=== PATIENT | male | born 1980 | race African-American/Black ===

== ENCOUNTER 2017-05-20 03:55 | Emergency (ER) | payer OTHER ==
[2017-05-20 04:31] VITALS: BP 153/99; PULSE 75; TEMP 97.5; BMI 31.1
--- NOTE | 2017-05-20 04:39 | PDOC ---
History of Present Illness - General History Source: Patient - History of Present Illness Initial Comments: 05/20/17 04:39 The patient is a 37 year old male, with no significant past medical history, who presents to the emergency department with a weeks of cold-like symptoms. The patient reports being around his and her coworker who have been sick with similar symptoms recently. He states his wifes coworker was hospitalized which raised his concern and prompted him to come to the ED. He denies chest pain, shortness of breath, headache and dizziness. He denies fever, chills, nausea, vomit, diarrhea and constipation. He denies dysuria, frequency, urgency and hematuria. Allergies: NKDA <Denice Prado - Last Filed: 05/20/17 04:39> - General History Source: Patient <Jay JayArpan - Last Filed: 05/20/17 05:17> - General Chief Complaint: Shortness of Breath Stated Complaint: S.O.B. Time Seen by Provider: 05/20/17 04:33 Past History <Denice Prado - Last Filed: 05/20/17 04:39> - Past Medical History COPD: No HTN: Yes - Suicide/Smoking/Psychosocial Hx Smoking Status: Yes Smoking History: Never smoked Have you smoked in the past 12 months: No Number of Cigarettes Smoked Daily: 20 Information on smoking cessation initiated: No Hx Alcohol Use: No Drug/Substance Use Hx: No Substance Use Type: None <SergosoledadArpan - Last Filed: 05/20/17 05:17> - Past Medical History Allergies/Adverse Reactions: Allergies Allergy/AdvReac Type Severity Reaction Status Date / Time No Known Allergies Allergy Verified 05/20/17 04:27 Home Medications: Ambulatory Orders No Home Medications 0 dose .ROUTE UTDICT 05/18/12 Ibuprofen [Motrin -] 800 mg PO Q6H #30 tablet 11/11/15 Nebivolol [Bystolic -] 5 mg PO DAILY 11/11/15 Review of Systems - Review of Systems Able to Perform ROS?: Yes Comments:: 05/20/17 04:39 CONSTITUTIONAL: Absent: fever, chills, diaphoresis, generalized weakness, malaise, loss of appetite HEENT: (+) nasal congestion, rhinorrhea, Absent: throat pain, throat swelling, difficulty swallowing, mouth swelling, ear pain, eye pain, visual Changes CARDIOVASCULAR: Absent: chest pain, syncope, palpitations, irregular heart rate, lightheadedness , peripheral edema RESPIRATORY: Absent: cough, shortness of breath, dyspnea with exertion, orthopnea, wheezing, stridor, hemoptysis GASTROINTESTINAL: Absent: abdominal pain, abdominal distension, nausea, vomiting, diarrhea, constipation, melena, hematochezia GENITOURINARY: Absent: dysuria, frequency, urgency, hesitancy, hematuria, flank pain, genital pain MUSCULOSKELETAL: Absent: myalgia, arthralgia, joint swelling SKIN: Absent: rash, itching, pallor HEMATOLOGIC/IMMUNOLOGIC: Absent: easy bleeding, easy bruising, lymphadenopathy, frequent infections ENDOCRINE: Absent: unexplained weight gain, unexplained weight loss, heat intolerance, cold intolerance NEUROLOGIC: Absent: headache, focal weakness or paresthesias, dizziness, unsteady gait, seizure, mental status changes, bladder or bowel incontinence PSYCHIATRIC: Absent: anxiety, depression, suicidal or homicidal ideation, hallucinations. <Denice Prado - Last Filed: 05/20/17 04:39> *Physical Exam - Vital Signs Last Vital Signs Temp Pulse Resp BP Pulse Ox 97.5 F L 75 18 153/99 100 05/20/17 04:28 05/20/17 04:28 05/20/17 04:28 05/20/17 04:28 05/20/17 04:28 - Physical Exam Comments: 05/20/17 04:41 GENERAL: Well developed, well nourished. Awake and alert. No acute distress. HEENT: Normocephalic, atraumatic. PERRLA, EOMI. No conjunctival pallor. Sclera are non- icteric. Moist mucous membranes. Oropharynx is clear. NECK: Supple. Full ROM. No JVD. Carotid pulses 2+ and symmetric, without bruits. No thyromegaly. No lymphadenopathy. CARDIOVASCULAR: Regular rate and rhythm. No murmurs, rubs, or gallops. Distal pulses are 2+ and symmetric. PULMONARY: No evidence of respiratory distress. Lungs clear to auscultation bilaterally. No wheezing, rales or rhonchi. ABDOMINAL: Soft. Non-tender. Non-distended. No rebound or guarding. No organomegaly. Normoactive bowel sounds. MUSCULOSKELETAL Normal range of motion at all joints. No bony deformities or tenderness. No CVA tenderness. EXTREMITIES: No cyanosis. No clubbing. No edema. No calf tenderness. SKIN: Warm and dry. Normal capillary refill. No rashes. No jaundice. NEUROLOGICAL: Alert, awake, appropriate. Cranial nerves 2-12 intact. Normoreflexic in the upper and lower extremities. Normal speech. Toes are down-going bilaterally. Gait is normal without ataxia. PSYCHIATRIC: Cooperative. Good eye contact. Appropriate mood and affect. <Denice Prado - Last Filed: 05/20/17 04:39> - Vital Signs Last Vital Signs Temp Pulse Resp BP Pulse Ox 97.5 F L 75 18 153/99 100 05/20/17 04:28 05/20/17 04:28 05/20/17 04:28 05/20/17 04:28 05/20/17 04:28 <Arpan Goyal - Last Filed: 05/20/17 05:17> Medical Decision Making - Medical Decision Making 05/20/17 05:16 Dr. Goyal: The scribe's documentation has been prepared under my direction and personally reviewed by me in its entirery. I confirm that the note above accurately reflects all work, treatment, procedures, and medical decision making performed by me. <Arpan Goyal - Last Filed: 05/20/17 05:17> *DC/Admit/Observation/Transfer - Attestations Scribe Attestion: 05/20/17 04:42 Documentation prepared by Denice Prado, acting as forensic medical examiner for Arpan Goyal DO <Denice Prado - Last Filed: 05/20/17 04:39> - Discharge Dispostion Admit: No <Arpan Goyal - Last Filed: 05/20/17 05:17> Diagnosis at time of Disposition: Cough, Post-nasal drip - Discharge Dispostion Disposition: HOME Condition at time of disposition: Stable - Referrals Referrals: Billy Forde MD [Primary Care Provider] - - Patient Instructions Printed Discharge Instructions: DI for Cough -- Adult Additional Instructions: Purchase and take Claritin over the counter medication once daily and possibly Benadryl for night time to dry up your secretion. Follow up with your doctor if symptoms don't improve. Your chest xray and the influenza taken here in the department were negative - Post Discharge Activity
--- NOTE | 2017-05-20 13:17 | EKG ---
Test Reason : Blood Pressure : / mmHG Vent. Rate : 053 BPM Atrial Rate : 053 BPM P-R Int : 168 ms QRS Dur : 092 ms QT Int : 452 ms P-R-T Axes : -02 060 035 degrees QTc Int : 424 ms SINUS BRADYCARDIA OTHERWISE NORMAL ECG NO PREVIOUS ECGS AVAILABLE Confirmed by CAILIN PAN, CARL ([id number]) on 05/20/2017 1:17:19 PM Referred By: Confirmed By:CARL SIMEON MD
== END 2017-05-20 05:31 | disposition home or self-care (01) ==
LOC: JER 03:55
DX: R09.82 Postnasal drip (principal); R05 Cough
CPT/HCPCS: 71046-TC; 87804; 93005; 93010; 99282-25

== ENCOUNTER 2017-12-30 05:05 | Day surgery (SDC) | payer OTHER ==
[2017-12-23 16:20] VITALS: BMI 27.4
--- NOTE | 2017-12-30 09:20 | HP ---
Satellite [facility] - Chief Complaint Chief Complaint: right knee pain - Past Medical History Allergies/Adverse Reactions: Allergies Allergy/AdvReac Type Severity Reaction Status Date / Time No Known Allergies Allergy Verified 05/20/17 04:27 - Current Medications Current Medications: Home Medications Medication Instructions Recorded Oxycodone HCl/Acetaminophen 1 - 2 tab PO Q6H #30 tab MDD 6 12/30/17 [Percocet 5-325 mg Tablet] Satellite Physical Exam - Physical Examination Vital Signs: Vital Signs Period Temp Pulse Resp BP Sys/Elkins Pulse Ox Last 24 Hr 100 General Appearance: Well Nourished, Well Developed, Alert & Oriented x3 ENT: Clear Lung: Normal air movement Heart: Regular rate & rhythm Extremities: Other (right knee- +swelling, + ttp, decr rom, + amira, + ant draw, + carole, nvi MRI + acl rupture, LMT) Neurological: Intact, Alert, Oriented Satellite Impression/Plan - Impression/Plan Impression: right knee internal derangement Operative Procedure: right knee arthroscopy with ACL reconstruction using autograft Date to be Performed: 12/30/17
[2017-12-30] MEDS ORDERED: ROPIVACAINE HCL 0.5% 30ML VIAL ONE (09:29)
[2017-12-30] MEDS ORDERED: MIDAZOLAM HCL 2 MG/2 ML SINGLE DOSE VIAL ONE ×3 (09:30→09:56)
[2017-12-30] MEDS ORDERED: PROPOFOL 20 ML ONE (09:56)
[2017-12-30] MEDS ORDERED: KETOROLAC TROMETHAMINE 30 MG/1 ML VIAL ONE (09:57)
[2017-12-30] MEDS ORDERED: DEXAMETHASONE SOD PHOSPHATE 4 MG/1 ML VIAL ONE (09:57)
[2017-12-30] MEDS ORDERED: LIDOCAINE HCL/PF 2% SDV 5ML VIAL ONE (09:57)
[2017-12-30] MEDS ORDERED: ceFAZolin SODIUM 1 GM VIAL IVPB ONE (10:34)
[2017-12-30] MEDS ORDERED: ONDANSETRON 4 MG/2 ML VIAL IVPUSH PRN (11:28)
[2017-12-30] MEDS ORDERED: oxyCODONE HCL 5 MG TABLET PO PRN ×2 (11:28)
[2017-12-30] MEDS ORDERED: LACTATED RINGERS SOLUTION 1,000 ML IV SCH (11:30)
[2017-12-30] MEDS ORDERED: BUPIVACAINE HCL/PF (5 MG/ML) 30 ML VIAL IJ ONE (12:10)
--- NOTE | 2017-12-30 12:19 | OP ---
Operative Note - Note: Operative Date: 12/30/17 ([facility]) Pre-Operative Diagnosis: right knee internal derangement Operation: right knee arthroscopy with ACL reconstruction using btb autograft, PLM Post-Operative Diagnosis: Same as Pre-op Surgeon: Prosper Quintero Occupational Therapy Co Director: Kobe King Anesthesiologist/BOOKKEEPER RECEPTIONIST: Zaire Koenig Anesthesia: General, Local Specimens Removed: shavings Estimated Blood Loss (mls): 0 (tourniquet) Operative Report Dictated: Yes
[2017-12-30 13:32] VITALS: TEMP 97.3
[2017-12-30 13:52] VITALS: BP 150/98; PULSE 48
--- NOTE | 2017-12-31 06:32 | OP ---
DATE OF OPERATION: 12/30/2017 PREOPERATIVE DIAGNOSIS: Right anterior cruciate ligament tear. POSTOPERATIVE DIAGNOSIS: Right anterior cruciate ligament tear plus lateral meniscus tear. PROCEDURE: Right anterior cruciate ligament reconstruction with [id number] autograft and partial lateral meniscectomy. SURGICAL ATTENDING: Prosper Quintero MD INSPECTOR CHIEF: AUGIE Eldridge ANESTHESIA: Regional and general. CLOSURE: Metallic interference screw fixation to graft, number 1 Vicryl for tendon, 2-0 for subcutaneous, and 3-0 Monocryl subcuticular and skin glue for skin. ESTIMATED BLOOD LOSS: Negligible. TOURNIQUET TIME: One hour. COMPLICATIONS: None. CONDITION: To recovery room in stable condition. DESCRIPTION OF OPERATIVE PROCEDURE: Patient was taken to the operating room on December 30, 2017. Regional and general anesthesia was administered by the anesthesiologist. IV Kefzol was prophylactic prior to the case. A well-padded pneumatic tourniquet was placed on the right proximal thigh. The right lower extremity was prepped and draped in the usual sterile fashion. The leg was exsanguinated with an Esmarch bandage, tourniquet inflated to 275 mmHg. A 6-cm longitudinal incision over the patellar tendon was incised. Hemostasis was achieved with Bovie cautery. Dissection was carried down to the level of the tendon. Plugs were harvested from the patella and from the tibial tubercle that was 10 x 25 mm thickness. A 10-mm double bit was used to harvest central portion of the patellar tendon. Through these plugs were drilled holes for traction sutures. The rent was closed with 0 Vicryl and the bone donor site was filled with StimuBlast putty. The graft was fastened snugly to the 10-mm sizer that was measured and placed on the back table. Next, the arthroscopic portion of the case was performed. Superolateral portal was made with a 15 blade followed by a blunt trocar. The medial and lateral portals were made through the previously made incision trocar. The scope was placed in the lateral infrapatellar portal and up into the suprapatellar pouch. The pouch was visualized to be clean. Medial and lateral gutters visualized to be clean. The undersurface of the patella and trochlea were visualized to be intact. With valgus stress on the knee, the medial compartment was entered. The medial meniscus was visualized, probed, found to be intact. The medial femoral condyle was run and found to be intact as was the medial tibial plateau. In the figure-4 position, the lateral compartment was entered. The lateral meniscus was found to have a complex tear of the posterior horn. This was debrided back achieving stable meniscal tissue with meniscal biter and arthroscopic shaver. The lateral femoral condyle was run and found to be intact as was the lateral tibial plateau. At 90 degrees, the ACL was visualized completely torn. Its stump was debrided using the shaver and the ArthroCare device. A notchplasty was performed, gaining sufficient width and height to perform the procedure and proceed around the posterior aspect of the notch. A 10-mm retro drill was used to drill a tunnel just anterior to the PCL and anteromedial proximal tibia. A Beath pin was placed through the AM portal and drilled in posterior aspect of notch low down on the wall, where it exited the anterolateral distal thigh. This was done with the knee flexed about 125 degrees. This was over-reamed to a 10 mm depth with a flat reamer. A shuttle suture was placed. It was pulled through the eyelet hole and then down the tibial tunnel. The shuttle suture was then used to pull the graft into place. It was then fixated using metallic interference screw with fixation both on the femur and the tibia with drawer being applied. Range of motion postfixation revealed excellent fixation with full extension, full flexion, no impingement on the notch, good crossing of the PCL and good tension on the graft. The knee was drained of the fluid, the portals closed on the outside with 3-0 nylon. Inside, 2-0 Vicryl was used to close the paratenon, the subcutaneous, and 3-0 Monocryl subcuticular, with skin glue for the skin. Sterile pressure dressing was applied, followed by a knee immobilizer. Tourniquet was deflated. Total tourniquet time was approximately an hour. No complications. Cale [id number]
--- NOTE | 2017-12-31 15:43 | PATH ---
Surgical Pathology Report Patient Name: DENISE PYLE [facility]. Rec. #: [id number] /Age/Gender: 1980 (Age: 37) / M Account: [id number] Location: [facility] SURGICAL Taken: 12/30/2017 Received: 12/30/2017 Reported: 12/31/2017 Physicians: Prosper Quintero M.D. Specimen(s) Received RIGHT KNEE SHAVINGS Clinical History Right ACL tear Final Diagnosis KNEE SHAVINGS, RIGHT, ARTHROSCOPY, PARTIAL LATERAL MENISCECTOMY, ACL REPAIR AND AUTOGRAFT: FRAGMENTS OF CARTILAGE, DENSE FIBROCONNECTIVE TISSUE, ADIPOSE TISSUE, BONE, AND SYNOVIUM. Electronically Signed Uma Guzman M.D. Gross Description Received in formalin, labeled "right knee shavings," is a 5.0 x 4.8 x 0.4 cm. aggregate of reeder-yellow soft tissue fragments. A financial sales representative portion is submitted in one cassette. /12/30/2017 [facility]12/30/2017
== END 2017-12-30 14:20 | disposition home or self-care (01) ==
LOC: JASU-SURG 05:05
PROVIDERS: ATTEND Orthopaedic Surgery
PROC: 0SBC4ZZ Excision of Right Knee Joint, Percutaneous Endoscopic Approach (ICD-10-PCS; 2017-12-30)
PROC: 0MQN4ZZ Repair Right Knee Bursa and Ligament, Percutaneous Endoscopic Approach (ICD-10-PCS; principal; 2017-12-30 10:00)
DX: S83.511A Sprain of anterior cruciate ligament of right knee, initial encounter (principal); S83.271A Complex tear of lateral meniscus, current injury, right knee, initial encounter; X58.XXXA Exposure to other specified factors, initial encounter; Y93.9 Activity, unspecified; Y92.9 Unspecified place or not applicable; Y99.9 Unspecified external cause status
CPT/HCPCS: 88304-TC; 94760; 97116-GP